=== PATIENT | male | born 1985 | race Caucasian/White ===

== ENCOUNTER → 2019-04-29 | Outpatient (CLI) | payer OTHER ==
--- NOTE | 2019-04-29 20:15 | MR ---
EXAMINATION TYPE: MR shoulder RT wo con DATE OF EXAM: 04/29/2019 COMPARISON: None HISTORY: Right shoulder pain TECHNIQUE: Multiplanar, multisequence imaging of the right shoulder is performed without contrast. FINDINGS: There is shoulder joint effusion. There is large rotator cuff tear with retraction of the supraspinat us tendon. There is severe subacromial joint space narrowing and impingement. There is superior sublu xation of the humeral head in relation to the glenoid. The biceps tendon is intact. Subscapularis tendon is intact. The glenoid olena appear intact. I see n o bony destructive process. There is no sign of a fracture. IMPRESSION: Large rotator cuff tear with retraction of the supraspinatus tendon. Moderate-sized shoulder joint ef fusion consistent with synovitis. No fracture seen.
== END | disposition home or self-care (01) ==
LOC: RADMRIMAIN 13:33
PROVIDERS: ATTEND Orthopaedic Surgery Sports Medicine
DX: M75.101 Unspecified rotator cuff tear or rupture of right shoulder, not specified as traumatic (principal)